=== PATIENT | female | born 1980 ===

== ENCOUNTER 2018-05-07 10:10 | Emergency (ER) | payer OTHER ==
[2018-05-07 10:55] VITALS: BMI 26.5
[2018-05-07 11:00] VITALS: RESP 18; TEMP 98.9
--- NOTE | 2018-05-07 11:18 | ED PDOC ---
Arrival/HPI - General Chief Complaint: Female Genitourinary Time Seen by Provider: 05/07/18 11:01 Historian: Patient - History of Present Illness Narrative History of Present Illness (Text): 05/07/18 11:12 37 y/o female, whose past medical history includes chronic dysfunction of uterus bleeding, fibrosis, and ovarian cyst, nkda, presents to the emergency department complaining of on and off vaginal bleeding for the past 4 weeks. Patient saw her own CORE MANAGER who sent her to the ER to have an ultrasound performed in concern of ovarian cyst and bleed. Pt. was offer by her own obgyn to start control medication for her dysfunctional uterine bleeding but she declined at that time. Patient's states the bleeding has been slowing down and turning into clots. Patient reports slight suprapubic pressure, but denies any chest pain palpitations, shortness of breath tinglings, or any other complaints. PMD: Dr. Major Time/Duration: Other (4 weeks) Symptom Onset: Gradual Symptom Course: Unchanged Activities at Onset: Light Context: Home Past Medical History - Provider Review Nursing Documentation Reviewed: Yes - Past History Past History: No Previous - Infectious Disease Hx of Infectious Diseases: None - Tetanus Immunization Tetanus Immunization: Unknown - Past Medical History Past Medical History: No Previous - Cardiac Hx Cardiac Disorders: No - Pulmonary Hx Asthma: Yes - Neurological Hx Neurological Disorder: No - HEENT Hx HEENT Disorder: No - Renal Hx Renal Disorder: No - Endocrine/Metabolic Hx Endocrine Disorders: No - Hematological/Oncological Hx Blood Disorders: No - Integumentary Hx Dermatological Disorder: No - Musculoskeletal/Rheumatological Hx Musculoskeletal Disorders: No Hx Arthritis: Yes Hx Back Pain: Yes - Gastrointestinal Hx Gastrointestinal Disorders: No Hx Bowel Surgery: No - Genitourinary/Gynecological Hx Genitourinary Disorders: No - Psychiatric Hx Depression: No Hx Substance Use: Yes - Past Surgical History Past Surgical History: No Previous - Surgical History Hx Orthopedic Surgery: Yes (R hand- carpal , R rotator cuff) - Anesthesia Hx Anesthesia: Yes Hx Anesthesia Reactions: No Hx Malignant Hyperthermia: No - Suicidal Assessment Feels Threatened In Home Enviroment: No Family/Social History - Physician Review Nursing Documentation Reviewed: Yes Family/Social History: No Known Family HX Smoking Status: Former Smoker Hx Alcohol Use: No Hx Substance Use: Yes Substance used: MARIJUANA Hx Substance Use Treatment: No Allergies/Home Meds Allergies/Adverse Reactions: Allergies No Known Allergies Allergy (Verified 05/07/18 11:00) Review of Systems - Physician Review All systems were reviewed & negative as marked: Yes - Review of Systems Constitutional: absent: Fatigue Eyes: absent: Vision Changes ENT: absent: Hearing Changes Respiratory: absent: SOB, Cough Cardiovascular: absent: Chest Pain Gastrointestinal: absent: Abdominal Pain, Diarrhea, Nausea, Vomiting Genitourinary Female: Vaginal Bleeding Skin: absent: Rash, Pruritis Neurological: absent: Headache, Dizziness Psychiatric: absent: Anxiety, Depression Physical Exam Vital Signs Reviewed: Yes Vital Signs Temp Pulse Resp BP Pulse Ox 05/07/18 10:55 98.9 F 75 18 111/68 100 Temperature: Afebrile Blood Pressure: Normal Pulse: Regular Respiratory Rate: Normal Appearance: Positive for: Well-Appearing, Non-Toxic, Comfortable Pain Distress: None Mental Status: Positive for: Alert and Oriented X 3 - Systems Exam Head: Present: Atraumatic, Normocephalic Pupils: Present: PERRL Extroacular Muscles: Present: EOMI Conjunctiva: Present: Normal Ears: Present: NORMAL TM, Normal Canal. No: Erythema Mouth: Present: Moist Mucous Membranes Pharnyx: Present: Normal. No: ERYTHEMA, EXUDATE, TONSILS ENLARGED Nose (External): Present: Atraumatic. No: Abrasion, Contusion Nose (Internal): Present: Normal Inspection, No Active Bleeding. No: Rhinorrhea , Septal Hematoma, Epistaxis Neck: Present: Normal Range of Motion. No: Meningeal Signs, MIDLINE TENDERNESS , Paraspinal Tenderness Respiratory/Chest: Present: Clear to Auscultation, Good Air Exchange. No: Respiratory Distress, Accessory Muscle Use Cardiovascular: Present: Regular Rate and Rhythm, Normal S1, S2. No: Murmurs Abdomen: No: Tenderness, Distention, Peritoneal Signs Genitourinary/Pelvic Exam: Present: Other (Pt. declined) Back: Present: Normal Inspection. No: Midline Tenderness, Paraspinal Tenderness , Pain with Leg Raise, Decubitus Ulcer Upper Extremity: Present: Normal Inspection. No: Cyanosis, Edema Lower Extremity: Present: Normal Inspection. No: Edema Neurological: Present: GCS=15, CN II-XII Intact, Speech Normal, Motor Func Grossly Intact, Gait Normal, Memory Normal Skin: Present: Warm, Dry, Normal Color. No: Rashes Psychiatric: Present: Alert, Oriented x 3, Normal Insight, Normal Concentration Medical Decision Making ED Course and Treatment: 05/07/18 11:32 -Labs/ua/type and screen -transvaginal sonogram -IVF/tylenol -Observe and reaessess 05/07/18 13:47 -Beta HCG is negative -Transvaginal sonogram show Multiple uterine fibroids. Physiologic 1.5 cm left ovarian cyst. -Labs are nonsignificant -UA show +UTI -Pt. feels well, eating and drinking well, request to be discharged home, refused pelvic exam -Discharge home with macrobid, tylenol for pain as needed, follow up with your own pmd and obgyn within 2 days, return to the ER for any new or worsening signs or symptoms. - Lab Interpretations Lab Results: 05/07/18 11:40 05/07/18 11:40 Lab Results 05/07/18 11:40: WBC 8.7 D, RBC 4.37, Hgb 13.4, Hct 39.5, MCV 90.4, MCH 30.7, MCHC 33.9, RDW 13.7, Plt Count 283, MPV 11.0, Gran % 72.3 H, Lymph % (Auto) 16.9 L, Bacon % (Auto) 9.9 H, Eos % (Auto) 0.8 L, Baso % (Auto) 0.1, Gran # 6.25 , Lymph # (Auto) 1.5, Bacon # (Auto) 0.9 H, Eos # (Auto) 0.1, Baso # (Auto) 0.01 05/07/18 11:40: Beta HCG, Quant < 2.39 05/07/18 11:40: Sodium 139, Potassium 3.9, Chloride 104, Carbon Dioxide 26, Anion Gap 13, BUN 18, Creatinine 0.7, Est GFR ( Amer) > 60, Est GFR (Non- Af Amer) > 60, Random Glucose 90, Calcium 9.5, Magnesium 2.1, Total Bilirubin 0.2, AST 21, ALT 17, Alkaline Phosphatase 64, Total Protein 7.6, Albumin 4.4, Globulin 3.2, Albumin/Globulin Ratio 1.4 05/07/18 11:40: Urine Color Yellow, Urine Appearance Clear, Urine pH 6.0, Ur Specific [place] 1.020, Urine Protein Negative, Urine Glucose (UA) Negative, Urine Ketones Negative, Urine Blood Large H, Urine Nitrate Negative, Urine Bilirubin Negative, Urine Urobilinogen 0.2, Ur Leukocyte Esterase Trace H, Urine RBC 20 - 25, Urine WBC 5 - 10, Ur Epithelial Cells 6 - 8, Amorphous Sediment Few, Urine Bacteria Many, Urine Other [place]yeast I have reviewed the lab results: Yes - RAD Interpretation Radiology Orders: 05/07/18 11:20 TRANSVAGINAL [US] Stat HISTORY: vaginal bleeding, on and off COMPARISON: None available. TECHNIQUE: Transabdominal and transvaginal FINDINGS: UTERUS: Measures 9.8 x 5.2 x 5.7 cm. Heterogeneous echotexture. Multiple fibroids identified. Posterior intramural uterine fibroid, 4.8 x 4.1 x 4 point 8 cm. Posterior subserosal fibroid, 3.1 x 2.6 x 3.3 cm. Pedunculated posterior subserosal fibroid, 2.8 x 3.5 x 2.5 cm. Anterior sub serosal fibroid, 2.7 x 2.1 x 2.8 cm. Fundal sub serosal fibroid with coarse calcification, 1.1 x 1.1 x 1.4 cm. ENDOMETRIUM: Measures 8 mm in diameter. Unremarkable. CERVIX: No cervical abnormality identified. RIGHT OVARY: Measures 2.7 x 2.7 x 1.4 cm. No solid mass. Normal flow. LEFT OVARY: Measures 3.0 x 3.0 x 2.4 cm. No solid mass. Normal flow. Physiologic cyst, 1.3 x 1.4 x 1.5 cm. FREE FLUID: No significant free fluid noted. OTHER FINDINGS: None. IMPRESSION: Multiple uterine fibroids. Physiologic 1.5 cm left ovarian cyst. [employer] Consultant: Radiologist - Medication Orders Current Medication Orders: Discontinued Medications Acetaminophen (Tylenol 325mg Tab) 650 mg PO STAT STA Stop: 05/07/18 11:21 Last Admin: 05/07/18 12:07 Dose: 650 mg Sodium Chloride (Sodium Chloride 0.9%) 1,000 mls @ 999 mls/hr IV .Q1H1M STA Stop: 05/07/18 12:20 Last Admin: 05/07/18 12:06 Dose: 999 mls/hr eMAR Start Stop Document 05/07/18 12:06 SF (Rec: 05/07/18 12:06 [email or web address]) Intravenous Solution Start Date 05/07/18 Start Time 12:06 End Date 05/07/18 End time 13:07 Total Infusion Time 61 - PA / SLICING MACHINE OPERATOR/TENDER / Resident Statement MD/DO has reviewed & agrees with the documentation as recorded. - Scribe Statement The provider has reviewed the documentation as recorded by the Juanita Conner Provider Scribe Attestation: All medical record entries made by the Asifibhedy were at my direction and personally dictated by me. I have reviewed the chart and agree that the record accurately reflects my personal performance of the history, physical exam, medical decision making, and the department course for this patient. I have also personally directed, reviewed, and agree with the discharge instructions and disposition. Disposition/Present on Arrival - Present on Arrival Any Indicators Present on Arrival: No History of DVT/PE: No History of Uncontrolled Diabetes: No Urinary Catheter: No History of Decub. Ulcer: No History Surgical Site Infection Following: None - Disposition Have Diagnosis and Disposition been Completed?: Yes Diagnosis: UTI (urinary tract infection), Dysmenorrhea Disposition: HOME/ ROUTINE Disposition Time: 14:22 Patient Plan: Discharge Patient Problems: Current Active Problems Problem Status Onset UTI (urinary tract infection) Acute Condition: IMPROVED Additional Instructions: -Discharge home with macrobid, tylenol for pain as needed, follow up with your own pmd and obgyn within 2 days, return to the ER for any new or worsening signs or symptoms. Prescriptions: Acetaminophen [Pain Reliever] 500 mg PO QID PRN #30 tablet PRN Reason: Other Nitrofurantoin Macrocrystals [Macrobid] 100 mg PO BID #14 cap Referrals: Nereyda Major MD [Primary Care Provider] - Follow up with primary Russel Reeves MD [Staff Provider] - Follow up with primary Forms: [employer] (Divehi), WORK NOTE
[2018-05-07] MEDS ORDERED: Sodium Chloride 0.9% 1,000 ML IV STA (11:20)
[2018-05-07 12:12] LABS: BASO # 0.01 K/mm3 (0.0-2.0); BASO % 0.1 % (0.0-3.0); EOS # 0.1 (0.0-0.7); EOS % 0.8 % (1.5-5.0); GRAN # 6.25 (1.4-6.5); GRAN % 72.3 % (50.0-68.0); HEMOGLOBIN 13.4 g/dL (12.0-16.0); LYMPH # 1.5 (1.2-3.4); LYMPH % 16.9 % (22.0-35.0); MEAN CELL VOLUME 90.4 fl (80.0-105.0); MEAN CORPUSCULAR HEMOGLOBIN 30.7 pg (25.0-35.0); MEAN CORPUSCULAR HGB CONC 33.9 g/dl (31.0-37.0); MONO # 0.9 (0.1-0.6); MONO % 9.9 % (1.0-6.0); RBC 4.37 10^6/uL (3.5-6.1); RED CELL DISTRIBUTION WIDTH 13.7 % (11.5-14.5); WHITE BLOOD COUNT 8.7 10^3/ul (4.5-11.0)
[2018-05-07 12:14] LABS: URINE BILIRUBIN NEGATIVE (NEGATIVE); URINE BLOOD LARGE (NEGATIVE); URINE GLUCOSE (UA) NEGATIVE (NEGATIVE); URINE LEUKOCYTE ESTERASE TRACE Leu/uL (NEGATIVE); URINE PROTEIN NEGATIVE mg/dL (<30 mg/dL); URINE UROBILINOGEN 0.2 E.U./dL (<1 E.U./dL)
[2018-05-07 12:15] LABS: URINE APPEARANCE CLEAR (CLEAR); URINE COLOR YELLOW (YELLOW)
[2018-05-07 12:24] LABS: ALB/GLOB RATIO 1.4 (1.1-1.8); ALBUMIN 4.4 g/dL (3.0-4.8); ALT/SGPT 17 U/L (7-56); AST/SGOT 21 U/L (14-36); BLOOD UREA NITROGEN 18 mg/dL (7-21); CALCIUM 9.5 mg/dL (8.4-10.5); GFR NON-AFRICAN AMERICAN > 60
[2018-05-07 13:18] LABS: URINE AMORPHOUS SEDIMENT FEW; URINE BACTERIA MANY (NEG); URINE RBC 20 - 25 /hpf (0-2)
--- NOTE | 2018-05-07 13:31 | US ---
Date of service: 05/07/2018 HISTORY: vaginal bleeding, on and off COMPARISON: None available. TECHNIQUE: Transabdominal and transvaginal FINDINGS: UTERUS: Measures 9.8 x 5.2 x 5.7 cm. Heterogeneous echotexture. Multiple fibroids identified. Posterior intramural uterine fibroid, 4.8 x 4.1 x 4 point 8 cm. Posterior subserosal fibroid, 3.1 x 2.6 x 3.3 cm. Pedunculated posterior subserosal fibroid, 2.8 x 3.5 x 2.5 cm. Anterior sub serosal fibroid, 2.7 x 2.1 x 2.8 cm. Fundal sub serosal fibroid with coarse calcification, 1.1 x 1.1 x 1.4 cm. ENDOMETRIUM: Measures 8 mm in diameter. Unremarkable. CERVIX: No cervical abnormality identified. RIGHT OVARY: Measures 2.7 x 2.7 x 1.4 cm. No solid mass. Normal flow. LEFT OVARY: Measures 3.0 x 3.0 x 2.4 cm. No solid mass. Normal flow. Physiologic cyst, 1.3 x 1.4 x 1.5 cm. FREE FLUID: No significant free fluid noted. OTHER FINDINGS: None. IMPRESSION: Multiple uterine fibroids. Physiologic 1.5 cm left ovarian cyst.
[2018-05-07 14:33] VITALS: BP 115/70; PULSE 69; O2SAT 99
== END 2018-05-07 14:35 | disposition home or self-care (01) ==
LOC: ED 10:10
DX: N39.0 Urinary tract infection, site not specified (principal); N94.6 Dysmenorrhea, unspecified; Z87.891 Personal history of nicotine dependence
CPT/HCPCS: 76830; 80053; 81001; 83735; 84702; 85025; 86850; 86900; 87086; 96360; 99285; J7030